=== PATIENT | male | born 1965 | race Caucasian/White ===

== ENCOUNTER 2016-11-02 07:57 | Day surgery (SDC) | payer MEDICAID ==
[~2016-11-02 07:57] MED LIST: ACETAMINOPHEN 500 MG TABLET PO PRN; HYDROmorphone HCL 2 MG/ML VIAL IV PRN; MAG HYDROX/ALUMINUM HYD/SIMETH 30 ML UDC PO PRN; MAGNESIUM HYDROXIDE 30 ML UDC PO PRN; ONDANSETRON HCL/PF 2 MG/ML VIAL IV PRN; PROMETHAZINE HCL 25 MG in DEXTROSE 5 % IN WATER 50 ML IV PRN; RINGERS SOLUTION,LACTATED 1,000 ML IV PRN; ZOLPIDEM TARTRATE 5 MG TABLET PO PRN; ceFAZolin SODIUM 1 GM VIAL IV PRN; diphenhydrAMINE HCL 50 MG/ML VIAL IV PRN; oxyCODONE HCL/ACETAMINOPHEN 1 TAB TABLET PO PRN
--- OUTSIDE RECORDS SUMMARY | 2016-11-02 08:01 | XMS REPORT | Continuity of Care Document ---
:1965 Author Organization [facility] ([facility]) Address [address] [place] [address] Phone [phone] Care Team Providers Name Role Phone Sara Guadalupe Primary Care Provider [phone] Source Comments This disclosure is being made pursuant to the Care Everywhere program, applicable federal and state laws, and may not contain all informaitonavailable regarding this patient.[facility] ([facility]) Active Allergies and Adverse Reactions No Known Allergies Current Medications Prescription Sig. Disp. Refills Start Date End Date Status oxyCODONE-acetaminoph Take 1-2 Tabs by 20 Tab 0 04/11/2012 Active en 5-325 mg per mouth every 6 hours tablet as needed. Do Not exceed 4000 mg of acetaminophen per 24 hours. Indications: PAIN diazepam 5 mg tablet Take 5 mg by mouth Active daily. CYCLOBENZAPRINE HCL Take 10 mg by mouth Active (FLEXERIL PO) as needed. cyclobenzaprine 10 mg Take 1 Tab by mouth 30 Tab 1 04/30/2012 Active tablet at bedtime. Indications: MUSCLE SPASM gabapentin 300 mg Take 1 Cap by mouth 90 Cap 3 04/30/2012 Active capsule 3 times daily. Indications: NEUROPATHIC PAIN amitriptyline 25 mg Take 1 Tab by mouth 30 Tab 3 04/30/2012 Active tablet at bedtime. Indications: NEUROPATHIC PAIN traMADol 50 mg tablet Take 1 Tab by mouth 90 Tab 0 04/30/2012 Active 4 times daily as needed. Indications: PAIN albuterol 90 Use 2 Puffs by 1 Inhaler 6 04/30/2012 Active mcg/Actuation inhaler inhalation every 6 hours as needed. Indications: CHRONIC OBSTRUCTIVE PULMONARY DISEASE beclomethasone (QVAR) Use 1 Puff by 1 Inhaler 5 05/11/2012 Active 80 mcg/Actuation inhalation 2 times inhaler daily. Indications: SEVERE CHRONIC OBSTRUCTIVE PULMONARY DISEASE Active Problems Problem Noted Date Rash 05/11/2012 Upper respiratory infection 05/11/2012 Emphysema lung 04/30/2012 Health education/counseling 04/30/2012 Scleral hemorrhage 04/30/2012 DVT of lower extremity (deep venous thrombosis) 04/30/2012 Back pain 04/11/2012 Anticoagulated 04/11/2012 Social History Tobacco Use Types Packs/Day Years Used Date Current Every Day Smoker Cigarettes 1 35 Smokeless Tobacco: Never Used Tobacco Cessation:Ready to Quit: No; Counseling Given: Yes Comments: Alcohol Use Drinks/Week oz/Week Comments Yes 1-2 Cans of beer 0.0 Last Filed Vital Signs Vital Sign Reading Time Taken Blood Pressure 120/68 05/11/2012 1:26 PM CDT Pulse 73 05/11/2012 1:26 PM CDT Temperature 37 C (98.6 F) 05/11/2012 1:26 PM CDT Respiratory Rate 17 04/11/2012 4:54 PM CDT Height 1.683 m (5' 6.25") 05/11/2012 1:26 PM CDT Weight 68.493 kg (151 lb) 05/11/2012 1:26 PM CDT Body Mass Index 24.18 05/11/2012 1:26 PM CDT Oxygen Saturation 100% 04/11/2012 4:54 PM CDT Plan of Care Patient Goal Type Goal Diet Increase water intake Lifestyle Increase physical activity Health Maintenance Due Date Last Done Comments HCV Screening 1965 Hepatitis B Vaccine (1 of 3 1965 - Primary Series) MMR Vaccine 1982 Td Vaccine 1982 Pneumococcal Vaccine (1 of 1 1983 - PPSV23) Colonoscopy 2014 Prostate Cancer Screening 2014 Influenza Vaccine: Seasonal 04/25/2016 (#1) Lipid Disorder Screening 04/30/2017 04/30/2012 Tdap Vaccine Addressed 09/25/2007 Overridden with the (Previously intention of not completed) completing the topic Results from Last 3 Months Not on file
[2016-11-02] MEDS ORDERED: RINGERS SOLUTION,LACTATED 1,000 ML IV ONE (08:49)
[2016-11-02] MEDS ORDERED: BUPIVACAINE HCL/EPINEPHRINE 50 ML VIAL IJ ONE (09:37)
[2016-11-02 13:23] VITALS: BP 114/68
[2016-11-02] MEDS ORDERED: SENNOSIDES/DOCUSATE SODIUM 1 TAB TABLET PO SCH (21:00)
== END 2016-11-02 07:58 | disposition home or self-care (01) ==
LOC: AMB 07:57
PROVIDERS: ATTEND Orthopaedic Surgery
PROC: 0YBG0ZZ Excision of Left Knee Region, Open Approach (ICD-10-PCS; 2016-11-02)
PROC: 0QPF04Z Removal of Internal Fixation Device from Left Patella, Open Approach (ICD-10-PCS; principal; 2016-11-02 09:20)
DX: T84.84XA Pain due to internal orthopedic prosthetic devices, implants and grafts, initial encounter (principal); R22.42 Localized swelling, mass and lump, left lower limb; J44.9 Chronic obstructive pulmonary disease, unspecified; K21.9 Gastro-esophageal reflux disease without esophagitis; F17.200 Nicotine dependence, unspecified, uncomplicated; Z68.21 Body mass index [BMI] 21.0-21.9, adult

== ENCOUNTER 2017-01-02 12:29 | Day surgery (SDC) | payer MEDICAID ==
[~2017-01-02 12:29] MED LIST changes: -ACETAMINOPHEN 500 MG TABLET PO PRN; -HYDROmorphone HCL 2 MG/ML VIAL IV PRN; -MAG HYDROX/ALUMINUM HYD/SIMETH 30 ML UDC PO PRN; -MAGNESIUM HYDROXIDE 30 ML UDC PO PRN; -ONDANSETRON HCL/PF 2 MG/ML VIAL IV PRN; -PROMETHAZINE HCL 25 MG in DEXTROSE 5 % IN WATER 50 ML IV PRN; -ZOLPIDEM TARTRATE 5 MG TABLET PO PRN; -ceFAZolin SODIUM 1 GM VIAL IV PRN; -diphenhydrAMINE HCL 50 MG/ML VIAL IV PRN; -oxyCODONE HCL/ACETAMINOPHEN 1 TAB TABLET PO PRN
--- OUTSIDE RECORDS SUMMARY | 2017-01-02 12:32 | XMS REPORT | Continuity of Care Document ---
:1965 Author Organization [facility] [place] [address] Care Team Providers Name Role Phone Unavailable Primary Care Provider Unavailable Source Comments This disclosure is being made pursuant to the [employer] program and maynot contain all information available regarding this patient.[facility] Active Allergies and Adverse Reactions Not on File Current Medications Be aware that medications may not be up to date as of this document. Alwaysverify current medications with the patient. Not on file Active Problems Not on file Social History Tobacco Use Types Packs/Day Years Used Date Never Assessed Plan of Care Health Maintenance Due Date Last Done Comments Retired-Pertussis Vaccine Adult 1983 Retired-Tetanus Vaccine Adult 1984 Colonoscopy 2014 Well Adult Visit 2014 Retired-INFLUENZA VACCINE 05/26/2015 Results from Last 3 Months Not on file
--- OUTSIDE RECORDS SUMMARY | 2017-01-02 12:33 | XMS REPORT | Continuity of Care Document ---
:1965 Author Organization [facility] ([facility]) Address [address] [place] [address] Phone [phone] Care Team Providers Name Role Phone Sara Guadalupe Primary Care Provider [phone] Source Comments This disclosure is being made pursuant to the Care Everywhere program, applicable federal and state laws, and may not contain all informaitonavailable regarding this patient.[facility] ([facility]) Active Allergies and Adverse Reactions No Known [...]
[2017-01-02] MEDS ORDERED: RINGERS SOLUTION,LACTATED 1,000 ML IV ONE (13:21)
[2017-01-02] MEDS ORDERED: RINGERS SOLUTION,LACTATED 1,000 ML IV PRN (14:56)
[2017-01-02] MEDS ORDERED: PANTOPRAZOLE SODIUM 40 MG/100 ML PIGGYBACK IV ONE (15:14)
[2017-01-02 15:50] VITALS: BP 116/72
[2017-01-02] MEDS ORDERED: PANTOPRAZOLE SODIUM 40 MG in NORMAL SALINE 100 ML IV ONE (16:00)
--- NOTE | 2017-01-03 12:20 | OR ---
Operative Report - Dictated Report Narrative: Operative Report Date of operation: 01/02/2017 Preoperative diagnosis: Anemia and GI bleeding Postoperative diagnosis: Esophageal varices (non-bleeding). Significant gastritis with evidence of chronic ongoing bleeding (CLOtest pending). Diverticulosis Operation: EGD with biopsy. Colonoscopy Surgeon: Dr Finnegan Anesthesia: BRENDAN VALENTIN CRNA Indications for procedure: The patient is a 51-year-old male referred by Dr. Jason Lambert. The patient has had a chronic anemia with heme positive stool. Findings: At least 2 nonbleeding esophageal varices. Severe gastritis with flecks of fresh blood indicating chronic bleeding. Diverticulosis otherwise normal colonoscopy Narrative of procedure: The patient was identified preoperatively, and prior to the administration of anesthetic a multidisciplinary timeout was observed EGD: With the patient in the recumbent position, a bite-block was placed, intravenous sedation was administered, and the patient's eyes covered with a towel. The flexible fiberoptic gastroscope was advanced into the posterior pharynx which appeared normal. The supraglottic larynx appeared normal. The cords appeared normal, moved well, and opposed in the midline. The scope was advanced under direct vision into the proximal esophagus which appeared normal. The esophagus appeared freely distensible with normal mucosa. There were 2 large esophageal varices at approximately the junction of the middle and distal third of the esophagus. There was no evidence of recent hemorrhage. The esophageal mucosa appeared normal down to the gastroesophageal junction which was sharp and noninflamed. The GE junction appeared normally distensible. The scope was advanced into the stomach which was insufflated with air. Immediately apparent was marked pangastritis with flecks of fresh blood indicating chronic bleeding. No berna ulcers or neoplastic lesions were appreciated including a retroflexed view of the gastric fundus and GE junction.. The pylorus appeared patent. The scope was advanced into the duodenal bulb which appeared normal. The scope was advanced further to the horizontal portion of the duodenum which appeared normal, specifically the villous architecture appeared well preserved and clear bile was present. The scope was slowly withdrawn through the duodenal bulb with confirmation that no active ulcer was present. The scope was withdrawn into the stomach and volunteer patient representative biopsy of gastric mucosa obtained for CLOtest. The biopsy site was seen to be hemostatic. The insufflated air was removed, the scope slowly withdrawn from the patient with confirmation of previous esophageal findings, and this portion of the procedure terminated. COLONOSCOPY: The patient was then placed in the left lateral position, and the perineum was inspected. There was no evidence of pilonidal disease or skin breakdown. The external appearance of the anus was normal. Sphincter tone was good. The flexible fiberoptic colonoscope was inserted into the rectum which was insufflated with air. The rectal mucosa and submucosal vascular pattern appeared normal, the prep was seen to be complete. The scope was advanced through the sigmoid colon, up the descending colon, and around the splenic flexure where the triangular haustral architecture of the transverse colon was seen. The scope was advanced across the transverse colon, around the hepatic flexure to the cecum, where the confluence of tenia and the ileocecal valve were identified. The mucosa at this level appeared normal. The scope was then slowly withdrawn in a circular fashion so that all aspects of colonic mucosa were inspected. The colon was very tortuous. The haustral architecture appeared well preserved throughout with no evidence of external compression. The mucosa and submucosal vascular pattern appeared normal, specifically there was no gross evidence to suggest colitis or inflammatory bowel disease and no AV malformations were seen. There were scattered diverticula but no inflammation or signs of recent bleeding. No polyps were encountered. The scope was gradually withdrawn to the level of the rectum. As much insufflated air as possible was removed. The scope was withdrawn from the patient and the procedure terminated. The patient tolerated the anesthetic and procedure well without complication and was transferred back to the ambulatory surgery area awake and in stable condition. The patient remained stable throughout a period of postoperative observation. He denied abdominal discomfort, was able to tolerate by mouth intake, and was up without assistance. I shared the operative findings with the patient and he was given copies of the photographs which appear in the medical record. He was discharged home with instructions not to engage in hazardous activity today, but may resume normal activity tomorrow, and advance diet as tolerated. He is to continue those medications as listed in the history and physical exam. I made arrangements to contact him with the biopsy reports and will make additional recommendations for treatment and follow-up based upon those results. Reviewed and electronically signed
== END 2017-01-02 12:30 | disposition home or self-care (01) ==
LOC: AMB 12:29
PROVIDERS: ATTEND Surgery
PROC: 0DB68ZX Excision of Stomach, Via Natural or Artificial Opening Endoscopic, Diagnostic (ICD-10-PCS; principal; 2017-01-02 13:00)
PROC: 0DJD8ZZ Inspection of Lower Intestinal Tract, Via Natural or Artificial Opening Endoscopic (ICD-10-PCS; 2017-01-02 13:00)
DX: K29.51 Unspecified chronic gastritis with bleeding (principal); I85.00 Esophageal varices without bleeding; K57.30 Diverticulosis of large intestine without perforation or abscess without bleeding; D64.9 Anemia, unspecified; K21.9 Gastro-esophageal reflux disease without esophagitis; J44.9 Chronic obstructive pulmonary disease, unspecified; M19.90 Unspecified osteoarthritis, unspecified site; F17.200 Nicotine dependence, unspecified, uncomplicated; Z68.21 Body mass index [BMI] 21.0-21.9, adult

== ENCOUNTER 2017-01-31 13:16 | Emergency (ER) | payer MEDICAID ==
[2017-01-31 13:23] VITALS: BP 114/72
--- OUTSIDE RECORDS SUMMARY | 2017-01-31 13:46 | XMS REPORT | Continuity of Care Document ---
:1965 Author Organization [facility] ([facility]) Address [address] [place] [address] Phone [phone] Care Team Providers Name Role Phone Sara Guadalupe Primary Care Provider [phone] Source Comments This disclosure is being made pursuant to the Care Everywhere program, applicable federal and state laws, and may not contain all informaitonavailable regarding this patient.[facility] ([facility]) Active Allergies and Adverse Reactions No [...]
--- OUTSIDE RECORDS SUMMARY | 2017-01-31 13:46 | XMS REPORT | Continuity of Care Document ---
:1965 Author Organization [facility] [place] [address] Care Team Providers Name Role Phone Unavailable Primary Care Provider Unavailable Source Comments This disclosure is being made pursuant to the [employer] program and maynot contain all information available regarding this patient.[facility] Active Allergies and Adverse Reactions Not on [...]
[2017-01-31] MEDS ORDERED: oxyCODONE HCL/ACETAMINOPHEN 1 TAB TABLET PO ONE (13:53)
--- NOTE | 2017-01-31 13:55 | ERNOTE ---
Upper Extremity HPI - Narrative Date of Service: 01/31/17 - General Extremities Pain Location: shoulder: right Time Seen by Provider: 01/31/17 13:39 Source: patient, RN notes reviewed Exam Limitations: no limitations - Immun/Allergies/Home Medications Immunizations: IMMUNIZATION HX History of Influenza Vaccine No Hx Pneumococcal Vaccination No Allergies/Adverse Reactions: Allergies Allergy/AdvReac Type Severity Reaction Status Date / Time No Known Allergies Allergy Verified 01/31/17 13:23 Home Medications: HOME MEDICATIONS Tiotropium [place] [Spiriva] 1 cap IH DAILY 09/12/13 [Last Taken 11/04/14 08:15] traMADol HCL [Tramadol HCl] 100 mg PO QID PRN 01/18/14 [Last Taken 11/04/14 08: 15 25mg] Acetaminophen [Tylenol] 650 mg PO QID PRN 01/27/14 [Last Taken Unknown] Albuterol Sulfate [Proventil Hfa] 1 - 2 puff IH Q4H PRN 01/27/14 [Last Taken 07/09 08:15] Warfarin Sodium [Coumadin] 0 mg PO DAILY 01/27/14 [Last Taken 12/28/16] Albuterol Sulfate 2.5 mg IH Q6H 04/20/16 [Last Taken 11/02/16 06:45] Budesonide/Formoterol Fumarate [Symbicort 160-4.5 Mcg Inhaler] 2 puff IH BID [Last Taken Unknown] Citalopram Hydrobromide [Celexa] 40 mg PO DAILY 04/20/16 [Last Taken Unknown] Ranitidine HCl [Zantac] 300 mg PO HS 04/20/16 [Last Taken Unknown] lamoTRIgine [Lamictal] 100 mg PO HS 04/20/16 [Last Taken Unknown] Ferrous Sulfate [Iron] 325 mg PO BID 10/10/16 [Last Taken Unknown] oxyCODONE HCL/ACETAMINOPHEN [Percocet 5 MG/325 MG] 1 - 2 tab PO Q6H PRN #16 tab 01/31/17 [Last Taken Unknown] - History of Present Illness Narrative: Derick is a 51 year old male who presents to the ED for an injury to his right shoulder that occurred yesterday. He was ambulating with a cane while leaving [employer], when the tip of his cane became caught on something, causing him to fall. He states the shoulder was sore yesterday, but when he got up today he could barely move it. He also reports some pain in the left knee. He has had a surgery on this recently d/t a patella fracture. The knee is sore and bruised, but he denies any impaired ROM or difficulty with weight bearing. He has been taking ibuprofen despite knowing that he should not because of being on Coumadin. Date (Duration): 01/30/17 Occurred: yesterday Location of Incident: other Method of Injury: Reports: fell Reason for Fall: Reports: tripped Loss of Consciousness: Reports: no loss of consciousness Associated Symptoms: Denies: tingling, weakness, numbness distally Prior Treament: Denies: similar symptoms before Review of Systems - Review of Systems Constitutional: Present: no symptoms reported EYE: Present: no symptoms reported ENT: Present: no symptoms reported Respiratory: Present: no symptoms reported Cardiology: Absent: chest pain, syncope, edema Gastrointestinal/Abdominal: Absent: nausea, vomiting, abdominal pain Genitourinary: Present: no symptoms reported Musculoskeletal: Present: joint pain. Absent: back pain, neck pain, joint swelling Skin: Absent: lesions, lumps, change in color Neurological: Absent: headache, dizziness/light-headedness, weakness, numbness Endocrine: Present: no symptoms reported Hematologic/Lymphatic: Present: easy bruising, easy bleeding Psych: Present: no symptoms reported - Patient's Past Medical History Patient History - Medical: Bipolar, Chronic Pain, GERD, Migraines, Osteoarthritis, Other Patient History - Cardiac/Respiratory: COPD, Deep Vein Thrombosis Patient History - Cancer: No Hx of Cancer Patient History - Surgical Procedures: Cholecystectomy, Colonoscopy, EGD, Other Patient History - Other: None - Family History Mother Family History - Medical: , No pertinent hx Family History - Cardiac/Respiratory: Deep Vein Thrombosis, Pulmonary Embolism Family History - Cancer: No pertinent family hx Father Family History - Medical: , Other Family History - Cardiac/Respiratory: No pertinent hx, Other Family History - Cancer: No pertinent family hx - Social History Living Situations: significant other Abuse History: No History of abuse Psych History: Hx of Anxiety, Hx of Depression, Hx of Bipolar Disorder Does anyone smoke in the home?: Yes Smoking Status: Current every day smoker Have you smoked in the past 12 months: Yes Alcohol Use: occasionally Drug Use: other - Immunizations Hx Pneumococcal Vaccination: No History of Influenza Vaccine: No Physical Exam - Physical Exam General Appearance: Present: alert, thin, other - disheveled, appears uncomfortable Neck: Present: normal inspection, nontender, supple, full range of motion Respiratory: Present: no respiratory distress, no accessory muscle use Cardiovascular/Chest: Present: normal peripheral pulses Extremity Exam: Present: decreased range of motion - Right shoulder, other - tenderness with palpation of right posterior/superior aspect of shoulder, mild ecchymosis to left anterior knee. Absent: joint swelling, extremity edema Neurological Exam: Present: alert, oriented, normal mood/affect, no motor/ sensory deficits Skin Exam: Present: normal color, warm/dry ED Progress - Vital Signs Patient's Vital Signs:: I have reviewed the patient's vital signs. Vital Signs: Vital Signs 01/31/17 13:19 Temperature 36.4 C L Pulse Rate 83 Respiratory 14 Rate Blood Pressure 114/72 O2 Sat by Pulse 97 Oximetry - X-Ray X-Ray #1 X-Ray: shoulder Interpretation: Reviewed by me X-ray Comments: Shoulder 3 of More Views RT * No definable fracture lucency or cortical discontinuity. There is questionable step-off at the anterolateral aspect of the right fourth rib incidentally noted. Mild sclerosis noted at the greater tuberosity may be reactive due to underlying rotator cuff pathology. Joint spaces are in gross normal alignment without subluxation or dislocation. Acromioclavicular joint in normal alignment without abnormal widening. Degenerative changes of the acromioclavicular joint noted. Soft tissues are grossly normal. Visualized portions of the chest grossly unremarkable. IMPRESSION: 1. No evidence for right shoulder dislocation or fracture. 2. Incidental step-off at the anterolateral right fourth rib. Could be related to an old injury but correlate clinically for possible fracture. 3. Right acromioclavicular joint degenerative arthropathy. - Progress/Reassessment Chief Complaint: Upper Extremity Injury/Problem Progress:: Unchanged Departure Clinical Impression: Shoulder sprain Qualifiers: Encounter type: initial encounter Shoulder sprain type: unspecified sprain Laterality: right Qualified Code(s): S43.401A - Unspecified sprain of right shoulder joint, initial encounter - Departure Disposition: Home Follow Up Needed Condition: Stable Instructions: Shoulder Sprain, Form - Excuse from Work, School, or Physical Activity Additional Instructions: Ice to sore area Wear sling as needed Contact orthopedics if no improvement at the end of the week Do not take ibuprofen Prescriptions: oxyCODONE HCL/ACETAMINOPHEN [Percocet 5 MG/325 MG] 1 - 2 tab PO Q6H PRN #16 tab PRN Reason: Pain
[2017-01-31] MEDS ORDERED: oxyCODONE HCL/ACETAMINOPHEN 1 TAB TABLET ONE (13:56)
== END 2017-01-31 14:13 | disposition home or self-care (01) ==
LOC: ER 13:16
DX: S43.401A Unspecified sprain of right shoulder joint, initial encounter (principal); Z86.718 Personal history of other venous thrombosis and embolism; Z79.01 Long term (current) use of anticoagulants; J44.9 Chronic obstructive pulmonary disease, unspecified; K21.9 Gastro-esophageal reflux disease without esophagitis; F31.9 Bipolar disorder, unspecified; F17.210 Nicotine dependence, cigarettes, uncomplicated; W01.0XXA Fall on same level from slipping, tripping and stumbling without subsequent striking against object, initial encounter; Y92.512 Supermarket, store or market as the place of occurrence of the external cause

== ENCOUNTER 2017-03-30 19:17 | Emergency (ER) | payer MEDICAID ==
--- OUTSIDE RECORDS SUMMARY | 2017-03-30 19:51 | XMS REPORT | Continuity of Care Document ---
:1965 Author Organization [facility] [place] [address] Care Team Providers Name Role Phone Unavailable Primary Care Provider Unavailable Source Comments This disclosure is being made pursuant to the [employer] program and maynot contain all information available regarding this patient.[facility] Active Allergies and Adverse Reactions Not on [...]
[2017-03-30] MEDS ORDERED: NORMAL SALINE 1,000 ML IV ONE ×2 (20:00→21:21)
[2017-03-30 20:03] LABS: Hematocrit 42.7 % (42.0-52.0); Hemoglobin 14.8 gm/dL (13.5-18.0); Mean Corpuscular Hemoglobin 32.2 pg (27-31); Mean Corpuscular Hgb Conc 34.7 g/dl (32-36); Mean Platelet Volume 9.2 fl (6.0-9.5); Neutrophil # 5.2 K/mm3 (1.3-6.0); Neutrophil % 58.2 % (42-75.0); Platelet Count 270 K/mm3 (150-450); Red Blood Count 4.59 M/mm3 (4.7-6.0); Red Cell Distribution Width 13.7 % (11.5-14.0); White Blood Count 8.9 K/mm3 (4.0-10.5)
--- NOTE | 2017-03-30 20:10 | ERNOTE ---
Medical Problem HPI - Narrative Date of Service: 03/30/17 - General Chief Complaint: General Assessment Time Seen by Provider: 03/30/17 19:45 Source: patient Exam Limitations: no limitations - Immun/Allergies/Home Medications Immunizations: IMMUNIZATION HX Immunizations Up to Date Yes History of Influenza Vaccine No Hx Pneumococcal Vaccination No Allergies/Adverse Reactions: Allergies No Known Allergies Allergy (Verified 03/30/17 19:27) Home Medications: HOME MEDICATIONS Tiotropium [place] [Spiriva] 1 cap IH DAILY 09/12/13 [Last Taken 11/04/14 08:15] traMADol HCL [Tramadol HCl] 100 mg PO QID PRN 01/18/14 [Last Taken 11/04/14 08: 15 25mg] Acetaminophen [Tylenol] 650 mg PO QID PRN 01/27/14 [Last Taken Unknown] Albuterol Sulfate [Proventil Hfa] 1 - 2 puff IH Q4H PRN 01/27/14 [Last Taken 07/09 08:15] Warfarin Sodium [Coumadin] 11 mg PO DAILY 01/27/14 [Last Taken 12/28/16] Albuterol Sulfate 2.5 mg IH Q6H 04/20/16 [Last Taken 11/02/16 06:45] Budesonide/Formoterol Fumarate [Symbicort 160-4.5 Mcg Inhaler] 2 puff IH BID [Last Taken Unknown] Citalopram Hydrobromide [Celexa] 40 mg PO DAILY 04/20/16 [Last Taken Unknown] Ranitidine HCl [Zantac] 300 mg PO HS 04/20/16 [Last Taken Unknown] lamoTRIgine [Lamictal] 100 mg PO HS 04/20/16 [Last Taken Unknown] Ferrous Sulfate [Iron] 325 mg PO BID 10/10/16 [Last Taken Unknown] - History of Present History Narrative: Pt. comes in with c/o dizziness, weakness, SOB, malaise, nausea, diarrhea, and fatigue after he became dehydrated four days ago. Pt. states that he drank gatorade and water and was not feeling better after doing this. Pt. is a cook in a kitchen. Review of Systems - Review of Systems Constitutional: Present: weakness, fatigue, malaise. Absent: recent illness, fever, chills EYE: Present: no symptoms reported ENT: Present: no symptoms reported Respiratory: Present: shortness of breath. Absent: cough Cardiology: Present: no symptoms reported Gastrointestinal/Abdominal: Present: nausea, vomiting, diarrhea. Absent: abdominal pain Genitourinary: Present: no symptoms reported. Absent: frequency, decreased urinary output Musculoskeletal: Present: no symptoms reported. Absent: back pain, joint pain Skin: Present: no symptoms reported. Absent: rash, change in color Neurological: Present: dizziness/light-headedness. Absent: headache, numbness, tingling All Other Systems: All systems neg except as marked - Patient's Past Medical History Patient History - Medical: Bipolar, Chronic Pain, GERD, Migraines, Osteoarthritis Patient History - Cardiac/Respiratory: COPD, Deep Vein Thrombosis Patient History - Cancer: No Hx of Cancer Patient History - Surgical Procedures: Cholecystectomy, Colonoscopy, EGD, Hernia Repair Patient History - Other: None - Family History Mother Family History - Medical: , No pertinent hx Family History - Cardiac/Respiratory: Deep Vein Thrombosis, Pulmonary Embolism Family History - Cancer: No pertinent family hx Father Family History - Medical: , Other Family History - Cardiac/Respiratory: No pertinent hx, Other Family History - Cancer: No pertinent family hx - Social History Living Situations: home Abuse History: No History of abuse Psych History: Hx of Anxiety, Hx of Depression, Hx of Bipolar Disorder, Current tx/ever been on anti-depressants or anti-anxiety meds Does anyone smoke in the home?: Yes Smoking Status: Current every day smoker Alcohol Use: heavy Drug Use: other - Immunizations Immunizations Up to Date: Yes Hx Pneumococcal Vaccination: No History of Influenza Vaccine: No Physical Exam - Physical Exam General Appearance: Present: wd/wn, alert, no apparent distress Eye Exam: Normal inspection: bilateral, PERRL: bilateral, EOMI: bilateral Ears, Nose, Throat: Present: normal ENT inspection, normal pharynx Neck: Present: normal inspection, nontender. 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 unable to urinate and refusing catheter at this time. Pt. had 2 liters IV fluid bolus and has hs greater than a 100ml in bladder per scan. Feel comfortable sending him home as he was dehydrated and feel his retention is likely due to acute ETOH withdrawal as he has not been able to hold down his usual amount of alcohol. - Results and Orders Patient's Lab Results:: I have reviewed the patient's lab results. - Vital Signs Patient's Vital Signs:: I have reviewed the patient's vital signs. Vital Signs: Vital Signs 03/30/17 19:21 Temperature 36.8 C Pulse Rate 100 Respiratory 26 H Rate Blood Pressure 124/95 O2 Sat by Pulse 100 Oximetry - X-Ray X-Ray #1 X-Ray: chest Interpretation: Reviewed by me X-ray Comments: diffuse hyperinflation no consolidation - Progress/Reassessment Chief Complaint: General Assessment Departure - Departure Clinical Impression: COPD exacerbation, Dehydration Heat exhaustion Qualifiers: Encounter type: initial encounter Qualified Code(s): T67.5XXA - Heat exhaustion , unspecified, initial encounter Disposition: Home self-care Condition: Good Instructions: Chronic Obstructive Pulmonary Disease Exacerbation, [id number] , Muscle Cramps and Spasms, [id number], Heat Exhaustion Information, Dehydration, Adult, [id number] Referrals: Moreno Louise MD [Primary Care Provider] -
[2017-03-30 20:14] LABS: Prothrombin Time (Patient) 13.6 Seconds (9.4-11.4)
[2017-03-30 20:17] LABS: ALT 30 U/L (19-67); AST 36 U/L (0-48); Albumin * 4.2 gm/dl (3.4-5.0); Alkaline Phosphatase * 107 U/L (50-170); Anion Gap 16.9 mmol/L (6.8-13.8); BUN/Creatinine Ratio 10.9 (9.0-21.6); Bilirubin, Total 1.8 mg/dL (0.0-1.1); Blood Urea Nitrogen 17 mg/dL (6-23); Calcium * 9.5 mg/dL (7.9-10.9); Carbon Dioxide 24.8 mmol/L (24-32.6); Chloride 101 mmol/L (97-106); Glucose * 167 mg/dL (70-110); Magnesium 1.9 mg/dL (1.2-2.8); Phosphorus 3.8 mg/dL (2.2-4.2); Potassium 3.7 mmol/L (3.4-4.6); Sodium 139 mmol/L (132-142); Total Protein 7.8 gm/dL (6.2-8.2)
[2017-03-30 20:19] LABS: INR 1.31 INR (0.90-1.10)
[2017-03-30] MEDS ORDERED: METHYLPREDNISOLONE SOD SUCC/PF 40 MG/ML VIAL IV ONE (20:36)
[2017-03-30] MEDS ORDERED: METHYLPREDNISOLONE SOD SUCC/PF 40 MG/ML VIAL ONE (21:20)
[2017-03-30 23:10] LABS: Urine Bilirubin 1 mg/dl (NEGATIVE); Urine Blood Negative /ul (NEGATIVE); Urine Ketone 5 mg/dL (NEGATIVE); Urine Nitrite Negative (NEGATIVE); Urine Protein 15 mg/dL (NEGATIVE); Urine Urobilinogen Normal (NORMAL)
[2017-03-30 23:19] LABS: Urine Appearance Clear; Urine Bacteria 2+; Urine Color Yellow; Urine RBC 0-5 /hpf (0-5); Urine WBC 0-5 /hpf (0-5)
[2017-03-30 23:20] LABS: Urine Coarse Granular Cast TRACE /LPF; Urine Hyaline Cast >25 /LPF
[2017-03-31 00:22] VITALS: BP 120/72
== END 2017-03-30 23:05 | disposition home or self-care (01) ==
LOC: ER 19:17
DX: E86.0 Dehydration (principal); J44.1 Chronic obstructive pulmonary disease with (acute) exacerbation; T67.5XXA Heat exhaustion, unspecified, initial encounter; F17.200 Nicotine dependence, unspecified, uncomplicated
CPT/HCPCS: 36415; 71020; 80053; 81001; 82140; 83735; 84100; 85025; 85610; 96361; 96374; 99283; G0481

== ENCOUNTER 2017-05-31 09:59 | Emergency (ER) | payer MEDICAID ==
[2017-05-31 10:38] LABS: Hematocrit 41.1 % (42.0-52.0); Hemoglobin 13.8 gm/dL (13.5-18.0); Mean Cell Volume 95.6 fl (78-100); Mean Corpuscular Hemoglobin 32.1 pg (27-31); Mean Corpuscular Hgb Conc 33.6 g/dl (32-36); Mean Platelet Volume 9.3 fl (6.0-9.5); Neutrophil # 3.4 K/mm3 (1.3-6.0); Platelet Count 253 K/mm3 (150-450); Red Cell Distribution Width 13.9 % (11.5-14.0); White Blood Count 7.1 K/mm3 (4.0-10.5)
[2017-05-31 10:45] LABS: Urine Bilirubin Negative (NEGATIVE); Urine Blood Negative /ul (NEGATIVE); Urine Ketone Negative (NEGATIVE); Urine Nitrite Negative (NEGATIVE); Urine Protein Negative (NEGATIVE); Urine Specific Gravity 1.015 SP.GR. (1.005-1.030); Urine Urobilinogen Normal (NORMAL)
[2017-05-31 10:52] LABS: Urine Appearance Clear; Urine Bacteria None Seen; Urine Color Yellow; Urine RBC None Seen /hpf (0-5); Urine WBC None Seen /hpf (0-5)
[2017-05-31 10:52] LABS: Prothrombin Time (Patient) 15.7 Seconds (9.4-11.4)
[2017-05-31 10:54] LABS: Albumin * 3.7 gm/dl (3.4-5.0); Anion Gap 12.1 mmol/L (6.8-13.8); BUN/Creatinine Ratio 24.3 (9.0-21.6); Bilirubin, Total 0.3 mg/dL (0.0-1.1); Ca. Corrected For Albumin 8.6 mg/dL (8.4-10.2); Calcium * 8.7 mg/dL (7.9-10.9); Carbon Dioxide 28.8 mmol/L (24-32.6); INR 1.51 INR (0.90-1.10); Partial Thrombolplastin Time 32.9 Seconds (24-32); Potassium 4.9 mmol/L (3.4-4.6)
[2017-05-31] MEDS ORDERED: oxyCODONE HCL/ACETAMINOPHEN 1 TAB TABLET PO ONE (11:19)
[2017-05-31 11:28] VITALS: BP 122/65
[2017-05-31] MEDS ORDERED: oxyCODONE HCL/ACETAMINOPHEN 1 TAB TABLET ONE (11:29)
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
== END 2017-05-31 11:36 | disposition home or self-care (01) ==
LOC: ER 09:59
DX: K62.5 Hemorrhage of anus and rectum (principal); R07.81 Pleurodynia; F17.200 Nicotine dependence, unspecified, uncomplicated; X58.XXXA Exposure to other specified factors, initial encounter; Y93.9 Activity, unspecified; Y92.9 Unspecified place or not applicable

== ENCOUNTER 2021-01-13 20:39 | Observation (INO) ==
[2021-01-13] MEDS ORDERED: ONDANSETRON HCL/PF 2 MG/ML VIAL IV ONE (21:04)
[2021-01-13] MEDS ORDERED: MORPHINE SULFATE 2 MG/ML DISP.SYRIN IV ONE (21:04)
[2021-01-13] MEDS ORDERED: NORMAL SALINE 1,000 ML IV PRN (21:08)
[2021-01-13] MEDS ORDERED: LIDOCAINE HCL 50 ML VIAL IJ ONE (21:20)
[2021-01-13 21:28] LABS: Hematocrit 35.2 % (42.0-52.0); Hemoglobin 10.9 gm/dL (13.5-18.0); Mean Cell Volume 88.7 fl (78-100); Mean Corpuscular Hemoglobin 27.5 pg (27-31); Mean Platelet Volume 10.3 fl (8-11.3); Platelet Count 196 K/mm3 (150-450); Red Blood Count 3.97 M/mm3 (4.7-6.0); Red Cell Distribution Width 20.8 % (11.5-14.0); White Blood Count 12.8 K/mm3 (4.0-10.5)
[2021-01-13 21:38] LABS: Total Cells Counted 100
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
[2021-01-13 21:43] LABS: Albumin * 3.3 gm/dl (3.4-5.0); Anion Gap 14.3 mmol/L (6.8-13.8); BUN/Creatinine Ratio 15.6 (9.0-21.6); Bilirubin, Total 0.7 mg/dL (0.0-1.1); CRP 8.5 mg/dL (0.0-0.9); Ca. Corrected For Albumin 8.9 mg/dL (8.4-10.2); Calcium * 8.7 mg/dL (7.9-10.9); Carbon Dioxide 24.5 mmol/L (24-32.6); Potassium 3.8 mmol/L (3.4-4.6); Total Protein 7.7 gm/dL (6.2-8.2)
[2021-01-13 22:03] LABS: Anisocytosis 2+; Atypical (Reactive) Lymph 2 % (0-2); Band 1 % (0-2.0); Basophil 1 % (0-1); Eosinophil 1 % (0-3); Hypochromia 1+; Lymphocyte 16 % (20-51); Microcytosis 1+; Monocyte 14 % (0-9); Neutrophil 65 % (42-75); Neutrophil # 8.3 K/mm3 (1.3-6.0); Platelet Estimate Normal (NORMAL)
[2021-01-13] MEDS ORDERED: MORPHINE SULFATE 4 MG/ML SYRG IV ONE (22:20)
[2021-01-13] MEDS ORDERED: CLINDAMYCIN IN 0.9 % SOD CHLOR 600 MG/50 ML BAG IV SCH (22:30)
[2021-01-13] MEDS ORDERED: ONDANSETRON HCL/PF 2 MG/ML VIAL IV PRN (22:31)
[2021-01-13] MEDS ORDERED: NICOTINE 21 MG PATC TD SCH (22:45)
[2021-01-13] MEDS: MORPHINE SULFATE 4 MG/ML SYRG IV PRN (23:43)
[2021-01-14] MEDS: NORMAL SALINE 1,000 ML IV PRN ×2 (00:15→10:52)
[2021-01-14] MEDS ORDERED: ALBUTEROL SULFATE 2.5 MG/0.5 ML VIAL.NEB IH ONE (00:41)
[2021-01-14] MEDS: MORPHINE SULFATE 4 MG/ML SYRG IV PRN (03:59)
[2021-01-14] MEDS: CLINDAMYCIN IN 0.9 % SOD CHLOR 600 MG/50 ML BAG IV SCH ×2 (07:15→14:52)
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
[2021-01-14 09:18] LABS: Hematocrit 32.4 % (42.0-52.0); Hemoglobin 10.2 gm/dL (13.5-18.0); Mean Cell Volume 88.3 fl (78-100); Mean Corpuscular Hemoglobin 27.8 pg (27-31); Mean Corpuscular Hgb Conc 31.5 g/dl (32-36); Mean Platelet Volume 9.8 fl (8-11.3); Neutrophil # 5.8 K/mm3 (1.3-6.0); Neutrophil % 63.5 % (42-75.0); Platelet Count 201 K/mm3 (150-450); Red Blood Count 3.67 M/mm3 (4.7-6.0); Red Cell Distribution Width 20.6 % (11.5-14.0); White Blood Count 9.2 K/mm3 (4.0-10.5)
[2021-01-14 09:20] LABS: Total Cells Counted 100
[2021-01-14 09:40] LABS: Eosinophil 1 % (0-3); Lymphocyte 20 % (20-51); Monocyte 17 % (0-9); Neutrophil 62 % (42-75); Neutrophil # 5.7 K/mm3 (1.3-6.0)
[2021-01-14 09:41] LABS: Anisocytosis 1+; Platelet Estimate Normal (NORMAL)
[2021-01-14] MEDS: HYDROcodone/ACETAMINOPHEN 1 EACH TABLET PO PRN ×2 (11:47→18:58)
[2021-01-14 19:03] VITALS: BP 122/65
[2021-01-14] MEDS ORDERED: ALBUTEROL SULFATE 2.5 MG/0.5 ML VIAL.NEB IH PRN (19:09)
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
== END 2021-01-14 21:17 | disposition left against medical advice (07) ==
LOC: ER 20:39 → MS 22:20 → INTOOBSV 22:20 → MS 23:10
PROVIDERS: ADMIT Family Medicine; ATTEND Family Medicine